=== PATIENT | male | born 1990 | race Caucasian/White ===

== ENCOUNTER 2018-05-13 22:57 | Emergency (ER) | payer SELFPAY ==
[~2018-05-13] VITALS: Ht 167.6 cm; Wt 83.0 kg
[2018-05-13 23:08] VITALS: Ht 167.6 cm; Wt 83.0 kg
[2018-05-13 23:45] VITALS: BP 141/86
== END 2018-05-14 00:33 | disposition home or self-care (01) ==
LOC: ED 22:57
DX: S51.811A Laceration without foreign body of right forearm, initial encounter (principal); W45.8XXA Other foreign body or object entering through skin, initial encounter; Y93.H2 Activity, gardening and landscaping; Y92.89 Other specified places as the place of occurrence of the external cause; Y99.8 Other external cause status
CPT/HCPCS: 90715; J2001